=== PATIENT | male | born 1960 | race Caucasian/White ===

== ENCOUNTER 2018-08-01 18:27 | Inpatient (IN) ==
[2018-08-01 22:44] LABS: ABG Base Excess -3 mEq/L (-2 to 3); ABG HCO3 22 mEq/L (21-27); ABG Oxygen Saturation 98 % (95-98); ABG PCO2 38 mmHg (35-45); ABG PH 7.38 pH Units (7.32-7.45); ABG PO2 103 mmHg (85-104); ABG TCO2 23 mEq/L (20-26); Blood Gas PEEP 8 cm H2O
--- NOTE | 2018-08-01 22:47 | Internal Med History&Physical ---
<Maryana Wharton M - Last Filed: 08/02/18 02:25> Date of Encounter: 08/02/18 Time of Encounter: 22:47 Internal Medicine - H&P: HPI History of present illness: Mr. Arora is a 57 year old male with history of CAD status post CABG 3, COPD, hypertension, diabetes who presented to [facility] emergency department from home due to increased shortness of breath. The patient states this morning he had gradual onset of worsening of shortness of breath, worsened by activity. He does note slight increase in his peripheral edema and has not taken his Lasix for the last 3 days. He has baseline orthopnea which has not significantly worsened recently. He admits chronic cough with production of green sputum but states this has not changed recently. He admits to chronic chest pain which he describes as "like a toothache" which is daily but has not changed recently in character or severity. No known sick contacts. He states he has not been hospitalized recently or used any antibiotics. The patient states yesterday he was feeling his normal self. He denies any fever, chills, nausea, vomiting, abdominal pain, difficulty urinating, back pain or visual changes. Patient is a daily smoker. In the emergency room at [facility] the patient received 1 DuoNeb treatment, 125 mg IV methylprednisolone, Levaquin,1L fluid bolus, and aspirin 324 and was found to have left acidosis of 4.6, leukocytosis of 19.3, polycythemia with hemoglobin of 17.8. Chest x-ray shows cardiomegaly but no evidence of focal consolidation. Initial ABG shows pH is 7.21 with PCO2 of 53, PaO2 of 120. Initial troponin negativex1. Blood cultures drawn at that point Past Med Surg Social Fam HX - Past Medical History Medical history: cardiomyopathy, CHF, coronary artery disease, diabetes, hypertension Psychiatric history: anxiety, depression - Past Surgical History Surgical History: cholecystectomy, coronary bypass (CABG), pacemaker/AICD - Social History Smoking Status: Current every day smoker Packs per day: 2 Smokeless Tobacco Status: No Alcohol use: none Drug use: none Internal Medicine - H&P: Meds Metformin HCl [Metformin HCl ER] 500 mg PO BID 02/12/17 [History] Aspirin 06/09/17 [History] Lisinopril 1 mg PO DAILY 06/09/17 [History] Naproxen [Naprosyn] 500 mg PO BID #14 tablet 06/09/17 [Rx] Pradaxa 1 cap PO BID 06/09/17 [History] Ranexa 1 mg PO BID 06/09/17 [History] Albuterol Sulfate [Albuterol Inhaler] 2 puff IH Q4HR 08/01/18 [History] Albuterol Sulfate [Proair Hfa] 08/01/18 [History] Alogliptin Benzoate [Alogliptin] 25 mg PO DAILY 08/01/18 [History] Atorvastatin [Lipitor] 40 mg PO HS 08/01/18 [History] Canagliflozin [Invokana] 100 mg PO DAILY 08/01/18 [History] Carvedilol [Coreg] 12.5 mg PO BID 08/01/18 [History] Clopidogrel [Plavix] 75 mg PO DAILY 08/01/18 [History] Exenatide Microspheres [Bydureon Pen] 2 mg SQ TH 08/01/18 [History] Glimepiride [Amaryl] 2 mg PO BID 08/01/18 [History] Isosorbide MONOnitrate [Isosorbide Mononitrate ER] 30 mg PO DAILY 08/01/18 [History] Tiotropium [place] [Spiriva Respimat] 2.5 mcg IH DAILY 08/01/18 [History] Allergy/AdvReac Type Severity Reaction Status Date / Time codeine Allergy Severe Hives Verified 07/07/18 05:03 [From Tylenol-Codeine #3] All Systems PM: A 10-system review of systems was performed and is negative for pertinent findings except as documented above in the HPI. - Constitutional Constitutional: no chills, no falls - EENT Eyes: no change in vision - Cardiovascular Cardiovascular ROS IM: dyspnea, dyspnea on exertion, edema, no chest pain, no diaphoresis - Respiratory Respiratory: cough, dyspnea, no wheezing, no pain on inspiration, no change in phlegm color - Gastrointestinal Gastrointestinal: no abdominal pain, no diarrhea - Genitourinary Genitourinary ROS male: no difficulty urinating - Musculoskeletal Musculoskeletal ROS IM: no back pain - Integumentary Integumentary IM: no rash - Neurological Neurological ROS: no numbness, no tingling - Constitutional Vitals: Temp Pulse Resp BP Pulse Ox 98.5 F 88 25 135/88 100 08/01/18 21:15 08/01/18 21:15 08/01/18 21:15 08/01/18 21:15 08/01/18 21:15 General appearance: Present: A&O X 3, pleasant, no acute distress (No acute respiratory distress, on BiPAP) Exam: General: Conversant and not conversationally dyspneic on BiPAP. No apparent distress. Follow commands. Appears stated age. Neck: No JVD. Trachea midline. Neck supple. Eyes: PERRL. No scleral icterus. HENT: Normocephalic and atraumatic. Moist mucus membranes. Cardiovascular: Regular rate and rhythm, paced on the monitor. Normal S1 and S2. No murmurs appreciated. Normal capillary refill. Extremities well perfused with 2+ distal pulses bilaterally. No edema in bilateral lower extremities. Pulmonary: Decreased breath sounds in bilateral bases with slight improvement in aeration and upper lung [place]. No wheezing, rales or rhonchi. Not in respiratory distress, on BiPAP. Speaks in full sentences. Abdomen: Soft, nondistended, and tontender. No bruits or masses. No guarding. Neuro: Alert and oriented x3. No slurred speech. No focal deficits noted. Skin: No rashes noted on visualized skin. Musculoskeletal: No bony abnormalities visualized. Moves all extremities. Psych: Normal mood. Pleasant. Makes appropriate eye contact. - Head Head exam: Present: atraumatic, normocephalic Internal Med - H&P Results - ABG Interpretation Interpretation: ABG interpreted by me ABG results: 08/01/18 22:39 ABG pH 7.38 D ABG pCO2 38 ABG pO2 103 ABG HCO3 22 ABG Total CO2 23 ABG O2 Saturation 98 ABG Base Excess -3 L - Assessment and Plan (1) COPD with exacerbation Current Visit: Yes Status: Acute Assessment and plan: * Likely source of the patient's symptoms given gradual onset, significant improvement with BiPAP and DuoNeb's * Repeat ABG upon arrival shows significant improvement and hypercapnia and normalization of his pH * We will give the patient 3 DuoNeb treatments with scheduled albuterol every 4 hours * Patient currently on BiPAP but will attempt to wean the patient down to nasal cannula as tolerated * 125 mg IV methylprednisolone given in the emergency department at [facility] * Will continue levaquin for COPD exacerbation with coverage for community acquired pneumonia given he did meet SIRS criteria upon arrival to [facility] * Blood cultures pending from [facility] (2) Acute respiratory failure Current Visit: Yes Status: Acute Assessment and plan: * Patient does not use baseline oxygen at home * Initially hypoxic on oxygen mask and transitioned to BiPAP Qualifiers: Respiratory failure complication: hypoxia and hypercapnia Qualified Code(s): J96.01 - Acute respiratory failure with hypoxia; J96.02 - Acute respiratory failure with hypercapnia (3) Elevated troponin Current Visit: Yes Status: Acute Assessment and plan: * Initial troponin at [facility] negative x1, repeat upon arrival here shows elevation to 0.29 * EKG shows paced rhythm but negative for ischemic changes using scarbossa criteria * Given significant cardiac history will trend troponins, obtain echo in the morning and consult cardiology * Placed on heparin drip, will continue home brilinta and plavix in the meantime with recommendations from cardiology appreciated (4) Lactic acidosis Current Visit: Yes Status: Resolved Assessment and plan: * Initial lactate 4.9, repeat 1.4 * Patient has had significant improvement in his acidosis as seen on ABG (5) Hx of CABG Current Visit: Yes Status: Acute Assessment and plan: * At this point no complaints of chest pain above baseline * Patient does not appear to be clinically fluid overloaded * Will obtain echocardiogram in the morning to evaluate EF (6) Diabetes mellitus Current Visit: Yes Status: Acute Assessment and plan: * Not on home insulin * q6 accuchecks with SSI until able to come off BiPAP and eat, until then will keep NPO * HgA1c ordered, glucose on BMP 327 Qualifiers: Diabetes mellitus type: type 2 Diabetes mellitus assisted insulin use: without assisted use Diabetes mellitus complication status: without complication Qualified Code(s): E11.9 - Type 2 diabetes mellitus without complications (7) Hyperlipidemia Current Visit: Yes Status: Acute Assessment and plan: * Continue home medications Qualifiers: Hyperlipidemia type: mixed hyperlipidemia Qualified Code(s): E78.2 - Mixed hyperlipidemia (8) Hypertension Current Visit: Yes Status: Acute Assessment and plan: * Continue home medications Qualifiers: Hypertension type: essential hypertension Qualified Code(s): I10 - Essential (primary) hypertension (9) DVT prophylaxis Current Visit: Yes Status: Acute Assessment and plan: * On heparin drip for NSTEMI - Time Spent With Patient Total time spent is greater than 50% in coordination of care (as documented) at patient's floor/unit and/or counseling patient: <Thomas Zeng - Last Filed: 08/02/18 20:22> Date of Encounter: 08/01/18 Internal Medicine - H&P: HPI History of present illness: Mr. Arora is a 57 year old male All Systems PM: A 10-system review of systems was performed and is negative for pertinent fin dings except as documented above in the HPI. - Constitutional Vitals: Temp Pulse Resp BP Pulse Ox 97.7 F 73 19 120/70 92 08/02/18 19:40 08/02/18 19:40 08/02/18 19:40 08/02/18 19:40 08/02/18 19:40 Internal Med - H&P Results - Labs CBC & Chem 7: 08/02/18 01:10 08/02/18 01:10 Labs: Short CBC 08/02/18 Range/Units 01:10 WBC 11.6 H (4.3-11.1) K/mcL Hgb 16.1 D (12.9-16.9) g/dL Hct 47.7 (37.5-50.1) % Plt Count 239 (140-400) K/mcL Neutrophils # 10.5 H (1.6-8.9) K/mcL BMP 08/02/18 01:10 Sodium 136 Potassium 4.3 Chloride 104 Carbon Dioxide 21 L BUN 15 Creatinine 0.92 Glucose 192 H Calcium 9.8 Cardiac Enzymes 08/01/18 08/02/18 Range/Units 23:14 10:50 Troponin I 0.29 H* 0.25 H* (< 0.04) ng/mL Urine 08/02/18 Range/Units 00:51 Urine Color Yellow (Yellow) Urine Clarity Clear (Clear) Urine pH 5.5 (5.0-8.0) pH Units Ur Specific [place] > 1.030 H (1.010-1.025) Urine Protein Trace (Neg-Trace) mg/dL Urine Glucose (UA) >=1000 H (Normal) mg/dL - ABG Interpretation ABG results: 08/01/18 22:39 ABG pH 7.38 D ABG pCO2 38 ABG pO2 103 ABG HCO3 22 ABG Total CO2 23 ABG O2 Saturation 98 ABG Base Excess -3 L - Impressions ITS Impressions Echocardiogram 08/02/18 23:36 Impressions: Technically sub-optimal due to poor echocardiographic windows. Despite the use of contrast enhancement, not all LV segments were well visualized. Grossly, LVEF appears severely reduced. Severely dilated left ventricle. Atypical septal motion consistent with post-operative status. Right ventricle was not well visiualized. Mild left ventricular diastolic dysfunction. No significant valvular dysfunction. Unable to estimate RVSP due to lack of TR jet. Findings: Study Quality * Technically sub-optimal due to poor echocardiographic windows. ECG Findings * Sinus rhythm with BBB. Left Ventricle * Despite the use of contrast enhancement, not all LV segments were well visualized. Grossly, LVEF appears severely reduced. * Severely dilated left ventricle. * Atypical septal motion consistent with post-operative status. * Mild left ventricular diastolic dysfunction. Right Ventricle * Right ventricle was not well visiualized. Left Atrium * Mildly dilated left atrium. Right Atrium * Mildly dilated right atrium. Aortic Valve * Aortic valve not well visualized. * No aortic regurgitation. * No aortic stenosis. Mitral Valve * Normal mitral valve structure and function. * No mitral regurgitation. * No mitral stenosis. Tricuspid Valve * Normal tricuspid valve structure and function. * No tricuspid regurgitation. * Unable to estimate RVSP due to lack of TR jet. Pulmonic Valve * Pulmonic valve is not well visualized. Aorta * Normally sized aortic root. Pericardium * The pericardium appears normal. IVC * The IVC is not well evaluated. Pulmonary Artery * Pulmonary artery not well visualized. - Time Spent With Patient Total time spent is greater than 50% in coordination of care (as documented) at patient's floor/unit and/or counseling patient: - Attending Attestation I saw and evaluated the patient. I reviewed the residents note, performed my own physical examination and agree with findings and plan as documented in the residents note. Patient seen and examined on the morning of 08/02/18. Patient had an elevation of his troponin, started heparin. Presented with acute hypoxic respiratory failure and possible pneumonia. Will continue antibiotics. Patient declines nicotine patch. Discussed patient's family history of medical problems, states that he thinks his mother had heart problems and cancer, but he left home at a young age so he did not know many details apart from that.
[2018-08-01] MEDS ORDERED: Naloxone 0.4 MG/ML INJ IVP PRN (22:49)
[2018-08-01] MEDS ORDERED: Ondansetron ODT 4 MG TAB.RAPDIS SL PRN (22:49)
[2018-08-01] MEDS ORDERED: Ipratropium/Albuterol Neb 3 ML IH ONE (23:01)
[2018-08-02] MEDS ORDERED: *HR* Heparin 5,000 UNIT/ML VIAL IVP PRN ×2 (00:29)
[2018-08-02] MEDS ORDERED: *HR* Heparin 5,000 UNIT/ML VIAL IVP ONE (00:29)
[2018-08-02] MEDS ORDERED: *HR* Dextrose 50 % in Water (Syg) 50 ML SYRINGE IVP PRN (00:39)
[2018-08-02] MEDS ORDERED: D5% in Water 1,000 ML IVC PRN (00:39)
[2018-08-02] MEDS ORDERED: Dextrose Gel 15 GM/37.5 ML TUBE PO PRN ×2 (00:39)
[2018-08-02 01:13] LABS: Bilirubin,Urine Negative (Negative); Blood,Urine Negative (Negative); Clarity,Urine Clear (Clear); Color,Urine Yellow (Yellow); Glucose,Urine (UA) >=1000 mg/dL (Normal); Ketones,Urine Negative (Negative); Leukocyte Esterase,Urine Negative (Negative); Nitrite,Urine Negative (Negative); PH,Urine 5.5 pH Units (5.0-8.0); Protein,Urine Trace mg/dL (Neg-Trace); Specific Gravity,Urine > 1.030 (1.010-1.025); Urobilinogen,Urine Normal (Normal)
[2018-08-02] MEDS: Heparin 25,000 UNIT/250 ML D5W 25,000 UNIT/250 ML IV.SOLN IVC SCH ×2 (01:49→21:53)
[2018-08-02 02:42] LABS: Basophils % 0.2 %; Hematocrit 47.7 % (37.5-50.1); Hemoglobin 16.1 g/dL (12.9-16.9); Immature Granulocytes % 0.4 % (0-4); Lymphocytes # 0.9 K/mcL (0.6-4.6); Lymphocytes % 7.8 %; Mean Corpuscular HGB Conc 33.8 g/dL (31.6-35.5); Mean Platelet Volume 10.8 fL (9.4-12.4); Monocytes # 0.1 K/mcL (0.0-1.3); Monocytes % 0.9 %; Neutrophils # 10.5 K/mcL (1.6-8.9); Platelet Count 239 K/mcL (140-400); Red Blood Count 5.36 M/mcL (4.19-5.50); Red Cell Distribution Width 14.1 % (11.5-14.5); Segmented Neutrophils % 90.7 %
[2018-08-02 02:49] LABS: Prothrombin Time 11.8 Seconds (9.4-12.1)
[2018-08-02 02:59] LABS: BUN/Creatinine Ratio 16 (6-26); Blood Urea Nitrogen 15 mg/dL (6-20); Calcium 9.8 mg/dL (8.6-10.3); Carbon Dioxide 21 mEq/L (23-29); Chloride 104 mEq/L (98-107); Glucose 192 mg/dL (70-105); Osmolality,Calculated 288 (280-300); Phosphorous 2.2 mg/dL (2.7-4.5); Potassium 4.3 mEq/L (3.5-5.1); Sodium 136 mEq/L (136-145); eGFR For Non-African Americans > 60 (> 60)
[2018-08-02] MEDS: Trolamine Salicylate/Aloe Vera 35.4 GM TUBE TP PRN ×2 (03:04→09:50)
[2018-08-02] MEDS: Levalbuterol Neb 1.25 MG/3 ML IH SCH ×6 (04:35→23:32)
[2018-08-02] MEDS: Insulin LISPRO 300 UNITS/3 ML VIAL SQ SCH ×3 (05:49→18:20)
[2018-08-02 06:42] LABS: Estimated Average Glucose 143 mg/dl; Hemoglobin A1C 6.6 %
[2018-08-02] MEDS ORDERED: *HR* Dabigatran 150 MG CAPSULE PO SCH (09:00)
[2018-08-02] MEDS: Levofloxacin 750 MG/150 ML 750 MG/150 ML BAG IVPB SCH (09:50)
[2018-08-02] MEDS: Ranolazine 500 MG TAB.ER.12H PO SCH ×2 (09:50→21:52)
[2018-08-02] MEDS: Isosorbide MONOnitrate (24 HR) 30 MG TAB.ER.24H PO SCH (09:50)
--- NOTE | 2018-08-02 10:05 | Cardiology Consult Note ---
Addendum entered and electronically signed by Alejandro Murphy MD 08/02/18 19:23: I examined this patient and my medical decision-making was reviewed with the ABAP DEVELOPER. I agree with the documented findings, disposition and treatment plan as described except to the extent set forth below. A/P: COPD exacerbation Elevated troponin Ischemic cardiomyopathy CAD PAF TTE pending, likely troponin from demand ischemia / COPD exacerbation. No urgent indication for invasive evaluation - [facility] at this time Thank you for the consult, Alejandro Murphy MD [facility] Original Note: Date of Encounter: 08/02/18 Time of Encounter: 08:45 Assessment and Plan (1) Elevated troponin Current Visit: Yes Status: Acute Per cardiology: -Troponins negative, 0.29 in the setting of COPD exacerbation, lactic acidosis, leukocytosis. -Denies chest pain. -ECG with paced rhythm. -On plavix, statin, BB, heparin drip, imdur, ranexa. Not on asa due to need for anticoagulation for PAF. -TTE pending. -Previous TTE 09/2017 poor quality study with moderate-severely reduced LVEF. 2014 LVEF 20%. -Continue to trend troponins. Continue heparin drip. -Agree with TTE. -Suspect demand ischemia. Further recs pending TTE and troponin trend. (2) Ischemic cardiomyopathy Current Visit: Yes Status: Acute Per cardiology: -Known ICM, last TTE as above. -On BB, lisinopril. 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 -Euvolemic on exam. -Repeat TTE pending. -Continue current medical management. (3) CAD (coronary artery disease) Current Visit: Yes Status: Chronic Per cardiology: -Known CAD s/p PCI and CABG. -Denies chest pain. -on plavix, statin, BB. Not on asa due to need for pradaxa with PAF. -Continue current medical therapy. Qualifiers: Coronary Disease-Associated Artery/Lesion type: [place] artery [place] vs. transplanted heart: [place] heart Associated angina: without angina Qualified Code(s): I25.10 - Atherosclerotic heart disease of [place] coronary artery without angina pectoris (4) PAF (paroxysmal atrial fibrillation) Current Visit: Yes Status: Chronic Per cardiology: -Known PAF. -ON BB, HR controlled. -ON pradaxa for anticoagulation. -Continue current medical therapy. Discussion w patient/family: The assessment and plan as outlined above was discussed with the patient who expressed understanding and agreement. All questions were answered. Thank you for involving us in the care of your patient. Please call with any questions. Discussed and reviewed with . History of Present Illness Consult date: 08/02/18 Requesting physician: Maryana Wharton Consult reason: elevated troponin Chief complaint: shortness of breath History of present illness: Mr. 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 Patient also reports productive cough with green sputum. Patient denies chest pain. Denies increased faigue. Reports shortness of breath is improved since admission. Past Med Surg Social Fam HX - Past Medical History Attestation: Yes The following information was validated with the patient. Source: patient, old records reviewed Medical history: atrial fibrillation, cardiomyopathy, CHF, coronary artery disease, diabetes, hyperlipidemia, hypertension, myocardial infarction Psychiatric history: anxiety, depression - Past Surgical History Surgical History: cholecystectomy, coronary bypass (CABG), pacemaker/AICD - Social History Smoking Status: Current every day smoker Packs per day: 2 Smokeless Tobacco Status: No Alcohol use: none Drug use: none Medications and Allergies Metformin HCl [Metformin HCl ER] 500 mg PO BID 02/12/17 [History] Aspirin 06/09/17 [History] Lisinopril 1 mg PO DAILY 06/09/17 [History] Naproxen [Naprosyn] 500 mg PO BID #14 tablet 06/09/17 [Rx] Pradaxa 1 cap PO BID 06/09/17 [History] Ranexa 1 mg PO BID 06/09/17 [History] Albuterol Sulfate [Albuterol Inhaler] 2 puff IH Q4HR 08/01/18 [History] Albuterol Sulfate [Proair Hfa] 08/01/18 [History] Alogliptin Benzoate [Alogliptin] 25 mg PO DAILY 08/01/18 [History] Atorvastatin [Lipitor] 40 mg PO HS 08/01/18 [History] Canagliflozin [Invokana] 100 mg PO DAILY 08/01/18 [History] Carvedilol [Coreg] 12.5 mg PO BID 08/01/18 [History] Clopidogrel [Plavix] 75 mg PO DAILY 08/01/18 [History] Exenatide Microspheres [Bydureon Pen] 2 mg SQ TH 08/01/18 [History] Glimepiride [Amaryl] 2 mg PO BID 08/01/18 [History] Isosorbide MONOnitrate [Isosorbide Mononitrate ER] 30 mg PO DAILY 08/01/18 [History] Tiotropium [place] [Spiriva Respimat] 2.5 mcg IH DAILY 08/01/18 [History] Allergy/AdvReac Type Severity Reaction Status Date / Time codeine Allergy Severe Hives Verified 07/07/18 05:03 [From Tylenol-Codeine #3] All Systems Review: The remainder of the systems were reviewed and are negative - Cardiovascular Cardiovascular: as per HPI, dyspnea at rest, dyspnea on exertion - Respiratory Respiratory: cough Physical Examination Vital Signs, Last 4 Hours Temp Pulse Resp BP Pulse Ox 08/02/18 07:36 98.2 F 77 17 121/76 95 General: Conversant, No Apparent Distress HEENT: Atraumatic, Normocephaly, Mucus Membranes Moist Neck: No JVD, Normal carotid pulses Cardiac: Reg Rate and Rhythm, Normal S1 and S2, No Murmur Lungs: Normal Breath Sounds, No Wheeze, Rales, Rhonchi Neuro: Alert and responsive, No focal deficits noted Abdomen: Soft, Non-Tender Skin: No rashes noted on visualized skin Musculoskeletal: No Chest Wall Tenderness Extremities: No Clubbing, No Cyanosis, No Edema, Normal Pulses Results 08/02/18 01:10 08/02/18 01:10 Lab Results Active Medications Atorvastatin Calcium (Lipitor) 40 mg PO HS BOLA Stop: 02/01/19 21:01 Carvedilol (Coreg) 12.5 mg PO BID BOLA; Protocol Stop: 02/01/19 09:01 Last Admin: 08/02/18 09:50 Dose: 12.5 mg Clopidogrel Bisulfate (Plavix) 75 mg PO DAILY BOLA Stop: 02/01/19 09:01 Last Admin: 08/02/18 09:50 Dose: 75 mg Dextrose/Water (Dextrose 50% (Syg)) 25 ml IVP AD PRN PRN Reason: Hypoglycemia Stop: 02/01/19 00:40 Glucagon (Glucagen) 1 mg IM ONCE PRN PRN Reason: Hypoglycemia Stop: 02/01/19 00:40 Glucose (Gluctose) 15 gm PO ONCE PRN PRN Reason: Hypoglycemia Stop: 02/01/19 00:40 Glucose (Gluctose) 30 gm PO ONCE PRN PRN Reason: Hypoglycemia Stop: 02/01/19 00:40 Heparin Sodium (Porcine) (Heparin) 4,000 unit IVP Q6HR PRN PRN Reason: SEE COMMENTS Stop: 02/01/19 00:30 Heparin Sodium (Porcine) (Heparin) 2,000 unit IVP Q6H PRN PRN Reason: SEE COMMENTS Stop: 02/01/19 00:30 Heparin Sodium/Dextrose (Heparin 25,000 Unit/250 Ml D5w) 25,000 unit in 250 mls @ 9.927 mls/hr IVC .Q24H BOLA; Protocol Stop: 02/01/19 00:31 Last Admin: 08/02/18 01:49 Dose: 9.2 unit/kg/hr, 9.9 mls/hr Levofloxacin/Dextrose (Levaquin Premix 750mg/150 Ml) 750 mg in 150 mls @ 100 mls/hr IVPB DAILY BOLA; Protocol Stop: 02/01/19 09:01 Last Admin: 08/02/18 09:50 Dose: 100 mls/hr Dextrose (Dextrose 5%) 1,000 mls @ 100 mls/hr IVC .Q10H PRN PRN Reason: HYPOGLYCEMIA Stop: 02/01/19 00:40 Insulin Human Lispro (Humalog) 0 units SQ Q6HR BOLA; Protocol Stop: 02/01/19 06:01 Last Admin: 08/02/18 05:49 Dose: 6 units Isosorbide Mononitrate (Imdur) 30 mg PO DAILY BOLA Stop: 02/01/19 09:01 Last Admin: 08/02/18 09:50 Dose: 30 mg Levalbuterol HCl (Xopenex) 1.25 mg IH [id number] [facility] Stop: 02/01/19 04:01 Last Admin: 08/02/18 08:19 Dose: 1.25 mg Lisinopril (Zestril) 10 mg PO DAILY BOLA Stop: 02/01/19 09:01 Last Admin: 08/02/18 09:50 Dose: 10 mg Naloxone HCl (Narcan) 0.4 mg IVP Q2M PRN PRN Reason: Opioid Reversal Stop: 01/31/19 22:50 Ondansetron HCl (Zofran Odt) 8 mg SL Q8HR PRN PRN Reason: Nausea And Vomiting Stop: 01/31/19 22:50 Ranolazine (Ranexa) 500 mg PO BID BOLA Stop: 02/01/19 09:01 Last Admin: 08/02/18 09:50 Dose: 500 mg Trolamine Salicylate (Aspercreme 10%) 1 appl TP TID PRN PRN Reason: SEE COMMENTS Stop: 02/01/19 02:31 Last Admin: 08/02/18 09:50 Dose: 1 appl Laboratory Tests 08/01/18 08/01/18 08/01/18 17:14 17:14 23:14 WBC 19.3 H Hgb Creatinine Troponin I < 0.03 0.29 H* 08/02/18 08/02/18 01:10 01:10 WBC 11.6 H Hgb 16.1 D Creatinine 0.92 Troponin I - Imaging and Cardiology Chest Xray: report reviewed Echo: pending, report reviewed - EKG Interpretation EKG results cardiology: personally reviewed (ECG with paced rhythm, HR 112.), other (Telemetry reviewed with average HR previous 12 hours noted to be 81, paced rhythm.) Consult Discharge Plan - Plan Referrals: Lizzie Irby MD [Primary Care Provider] - 08/09/18 11:00 am
[2018-08-02] MEDS ORDERED: Capsaicin 0.025% 60 GM TUBE TP PRN (11:22)
[2018-08-02] MEDS ORDERED: Perflutren Lipid Microsphere 1.3 ML in 0.9 % Sodium Chloride 8.7 ML IVP ONE (13:14)
--- NOTE | 2018-08-02 16:30 | Event Note ---
Date of Encounter: 08/02/18 Time of Encounter: 09:25 patient seen and examined this morning. no acute overnight events. Complaint in bilateral lower extremity. denies any chest pain. breathing improved. Exam General: In no acute distress. Respiratory exam: CTAB. no accessory muscle use, rales, rhonchi, wheezes Cardiovascular exam: RRR, +S1, +S2. no murmur, gallop, rubs. GI/Abdominal exam: Non-tender, Non-distended, normal bowel sounds, soft, no peritoneal signs. Extremities exam: trace pedal edema, pulses palpable in b/l lower extremities. no calf tenderness Neurological exam: CN II-XII intact, AO X3, no focal deficits. Skin exam: No skin rash Assessment COPD exacerbation Acute hypoxic respiratory failure Elevated troponin ischemic cardiomyopathy paroxysmal atrial fibrillation Lactic acidosis Hypertension Diabetes type 2 Hyperlipidemia Plan - patient started on heparin drip. continue for now and hold pradaxa. Last ECHO with poor EF. f/u ECHO. Cardiology recommendation appreciated. - Continue Plavix statin and Coreg. - continue lisinopril and imdur. - consult on smoking cessation. Patient determined to quit smoking. - continue Levaquin, prednisone and xopenex. start home inhalers. f/u Blood cultures from [place] - hold home oral hypoglycemics. Keep on SSI and accuchecks - Lactic acidosis likely related to metformin vs COPD exacerbation and improved quickly with COPD treatment. Does not appear to have sepsis
[2018-08-02] MEDS: TIOTROPIUM BROMIDE 2.5 MCG IH SCH (17:55)
[2018-08-02] MEDS: predniSONE 20 MG TABLET PO SCH (18:20)
[2018-08-02] MEDS ORDERED: Insulin LISPRO 300 UNITS/3 ML VIAL SQ SCH (22:00)
[2018-08-03 01:27] LABS: Basophils % 0.3 %; Hematocrit 43.1 % (37.5-50.1); Hemoglobin 14.8 g/dL (12.9-16.9); Immature Granulocytes % 0.6 % (0-4); Lymphocytes # 1.6 K/mcL (0.6-4.6); Lymphocytes % 10.5 %; Mean Corpuscular HGB Conc 34.3 g/dL (31.6-35.5); Mean Corpuscular Hemoglobin 29.8 pg (28.0-33.3); Mean Corpuscular Volume 86.9 fL (83.0-100.0); Mean Platelet Volume 10.5 fL (9.4-12.4); Monocytes # 0.8 K/mcL (0.0-1.3); Monocytes % 5.2 %; Neutrophils # 12.7 K/mcL (1.6-8.9); Platelet Count 218 K/mcL (140-400); Red Blood Count 4.96 M/mcL (4.19-5.50); Red Cell Distribution Width 13.9 % (11.5-14.5); Segmented Neutrophils % 83.4 %
[2018-08-03 01:44] LABS: BUN/Creatinine Ratio 22 (6-26); Blood Urea Nitrogen 18 mg/dL (6-20); Calcium 9.7 mg/dL (8.6-10.3); Carbon Dioxide 23 mEq/L (23-29); Chloride 103 mEq/L (98-107); Glucose 226 mg/dL (70-105); Osmolality,Calculated 285 (280-300); Potassium 4.8 mEq/L (3.5-5.1); Sodium 133 mEq/L (136-145); eGFR For Non-African Americans > 60 (> 60)
[2018-08-03] MEDS: Levalbuterol Neb 1.25 MG/3 ML IH SCH ×3 (03:34→11:14)
[2018-08-03] MEDS ORDERED: *HR* Dabigatran 150 MG CAPSULE PO SCH (09:00)
[2018-08-03] MEDS: Isosorbide MONOnitrate (24 HR) 30 MG TAB.ER.24H PO SCH (09:07)
[2018-08-03] MEDS: predniSONE 20 MG TABLET PO SCH (09:07)
[2018-08-03] MEDS: Ranolazine 500 MG TAB.ER.12H PO SCH (09:07)
[2018-08-03] MEDS: Levofloxacin 750 MG/150 ML 750 MG/150 ML BAG IVPB SCH (09:08)
[2018-08-03] MEDS: TIOTROPIUM BROMIDE 2.5 MCG IH SCH (09:09)
--- NOTE | 2018-08-03 09:48 | Cardiology Progress Note ---
Date of Encounter: 08/03/18 Time of Encounter: 09:00 Assessment and Plan (1) Elevated troponin Current Visit: Yes Status: Acute Per cardiology: -Troponins negative, 0.29, 0.25 in the setting of COPD exacerbation, lactic acidosis, leukocytosis. -Denies chest pain. -ECG with paced rhythm. -On plavix, statin, BB, heparin drip, imdur, ranexa. Not on asa due to need for anticoagulation for PAF. -TTE with poor quality study due to poor windows, LVEF appeats severely reduced. -Previous TTE 09/2017 poor quality study with moderate-severely reduced LVEF. 2014 LVEF 20%. -Demand ischemia, no cardiac rehab consult warranted. -Will stop heparin drip and resume home anticoagulation. -Cardiology will sign off, will arrange outpatient follow up. (2) Ischemic cardiomyopathy Current Visit: Yes Status: Acute Per cardiology: -Known ICM, last TTE as above. -On BB, lisinopril. 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 -Euvolemic on exam. -Repeat TTE pending. -Continue current medical management. (3) CAD (coronary artery disease) Current Visit: Yes Status: Chronic Per cardiology: -Known CAD s/p PCI and CABG. -Denies chest pain. -on plavix, statin, BB. Not on asa due to need for pradaxa with PAF. -Continue current medical therapy. Qualifiers: Coronary Disease-Associated Artery/Lesion type: [place] artery [place] vs. transplanted heart: [place] heart Associated angina: without angina Qualified Code(s): I25.10 - Atherosclerotic heart disease of [place] coronary artery without angina pectoris (4) PAF (paroxysmal atrial fibrillation) Current Visit: Yes Status: Chronic Per cardiology: -Known PAF. -ON BB, HR controlled. -ON pradaxa for anticoagulation. -Continue current medical therapy. Discussion w patient/family: The assessment and plan as outlined above was discussed with the patient who expressed understanding and agreement. All questions were answered. Thank you for involving us in the care of your patient. Please call with any questions. Discussed and reviewed with . Subjective Principal diagnosis: COPD exacerbation Interval history: Denies chest pain. Reports shortness of breath improved. Objective Vital Signs, Last 4 Hours Temp Pulse Resp BP Pulse Ox 08/03/18 07:40 15 96 08/03/18 07:25 97.9 F 74 18 125/76 94 General: Conversant, No Apparent Distress HEENT: Atraumatic, Normocephaly, Mucus Membranes Moist Neck: No JVD, Normal carotid pulses Cardiac: Reg Rate and Rhythm, Normal S1 and S2, No Murmur Lungs: Normal Breath Sounds, No Wheeze, Rales, Rhonchi Neuro: Alert and responsive, No focal deficits noted Abdomen: Soft, Non-Tender Skin: No rashes noted on visualized skin Musculoskeletal: No Chest Wall Tenderness Extremities: No Clubbing, No Cyanosis, No Edema, Normal Pulses Results 08/03/18 00:52 08/03/18 00:52 Lab Results Impressions Echocardiogram 08/02/18 23:36 Impressions: Technically sub-optimal due to poor echocardiographic windows. Despite the use of contrast enhancement, not all LV segments were well visualized. Grossly, LVEF appears severely reduced. Severely dilated left ventricle. Atypical septal motion consistent with post-operative status. Right ventricle was not well visiualized. Mild left ventricular diastolic dysfunction. No significant valvular dysfunction. Unable to estimate RVSP due to lack of TR jet. Findings: Study Quality * Technically sub-optimal due to poor echocardiographic windows. ECG Findings * Sinus rhythm with BBB. Left Ventricle * Despite the use of contrast enhancement, not all LV segments were well visualized. Grossly, LVEF appears severely reduced. * Severely dilated left ventricle. * Atypical septal motion consistent with post-operative status. * Mild left ventricular diastolic dysfunction. Right Ventricle * Right ventricle was not well visiualized. Left Atrium * Mildly dilated left atrium. Right Atrium * Mildly dilated right atrium. Aortic Valve * Aortic valve not well visualized. * No aortic regurgitation. * No aortic stenosis. Mitral Valve * Normal mitral valve structure and function. * No mitral regurgitation. * No mitral stenosis. Tricuspid Valve * Normal tricuspid valve structure and function. * No tricuspid regurgitation. * Unable to estimate RVSP due to lack of TR jet. Pulmonic Valve * Pulmonic valve is not well visualized. Aorta * Normally sized aortic root. Pericardium * The pericardium appears normal. IVC * The IVC is not well evaluated. Pulmonary Artery * Pulmonary artery not well visualized. Active Medications Atorvastatin Calcium (Lipitor) 40 mg PO HS BOLA Stop: 02/01/19 21:01 Last Admin: 08/02/18 21:52 Dose: 40 mg Capsaicin (Trixaicin) 1 appl TP TID PRN PRN Reason: NEUROPATHIC PAIN IN EXTREMITY Stop: 02/01/19 11:23 Last Admin: 08/02/18 18:21 Dose: 1 appl Carvedilol (Coreg) 12.5 mg PO BID [facility]; Protocol Stop: 02/01/19 09:01 Last Admin: 08/03/18 09:07 Dose: 12.5 mg Clopidogrel Bisulfate (Plavix) 75 mg PO DAILY [facility] Stop: 02/01/19 09:01 Last Admin: 08/03/18 09:08 Dose: 75 mg Dabigatran (Pradaxa) 150 mg PO BID [facility] Stop: 02/02/19 09:01 Dextrose/Water (Dextrose 50% (Syg)) 25 ml IVP AD PRN PRN Reason: Hypoglycemia Stop: 02/01/19 00:40 Glucagon (Glucagen) 1 mg IM ONCE PRN PRN Reason: Hypoglycemia Stop: 02/01/19 00:40 Glucose (Gluctose) 15 gm PO ONCE PRN PRN Reason: Hypoglycemia Stop: 02/01/19 00:40 Glucose (Gluctose) 30 gm PO ONCE PRN PRN Reason: Hypoglycemia Stop: 02/01/19 00:40 Levofloxacin/Dextrose (Levaquin Premix 750mg/150 Ml) 750 mg in 150 mls @ 100 mls/hr IVPB DAILY [facility]; Protocol Stop: 02/01/19 09:01 Last Admin: 08/03/18 09:08 Dose: 100 mls/hr Dextrose (Dextrose 5%) 1,000 mls @ 100 mls/hr IVC .Q10H PRN PRN Reason: HYPOGLYCEMIA Stop: 02/01/19 00:40 Insulin Human Lispro (Humalog) 0 units SQ HS [facility]; Protocol Stop: 02/01/19 22:01 Last Admin: 08/02/18 23:05 Dose: 3 unit Isosorbide Mononitrate (Imdur) 30 mg PO DAILY [facility] Stop: 02/01/19 09:01 Last Admin: 08/03/18 09:07 Dose: 30 mg Levalbuterol HCl (Xopenex) 1.25 mg IH [id number] [facility] Stop: 02/01/19 04:01 Last Admin: 08/03/18 07:40 Dose: 1.25 mg Lisinopril (Zestril) 10 mg PO DAILY [facility] Stop: 02/01/19 09:01 Last Admin: 08/03/18 09:08 Dose: 10 mg Naloxone HCl (Narcan) 0.4 mg IVP Q2M PRN PRN Reason: Opioid Reversal Stop: 01/31/19 22:50 Ondansetron HCl (Zofran Odt) 8 mg SL Q8HR PRN PRN Reason: Nausea And Vomiting Stop: 01/31/19 22:50 Pharmacy Profile Note (Patient Taking Own Medication) 0 each IH DAILY BOLA Stop: 02/01/19 16:31 Last Admin: 08/03/18 09:09 Dose: Not Given Prednisone (Prednisone) 40 mg PO DAILY [facility] Stop: 02/01/19 16:31 Last Admin: 08/03/18 09:07 Dose: 40 mg Ranolazine (Ranexa) 500 mg PO BID [facility] Stop: 02/01/19 09:01 Last Admin: 08/03/18 09:07 Dose: 500 mg Trolamine Salicylate (Aspercreme 10%) 1 appl TP TID PRN PRN Reason: SEE COMMENTS Stop: 02/01/19 02:31 Last Admin: 08/02/18 09:50 Dose: 1 appl Laboratory Tests 08/01/18 08/01/18 08/02/18 17:14 23:14 10:50 Troponin I < 0.03 0.29 H* 0.25 H* - Imaging and Cardiology Chest Xray: report reviewed Echo: report reviewed - EKG Interpretation EKG results cardiology: other (Telemetry reviewed with average HR previous 12 hours noted to be 75, paced rhythm. PVCs noted.) Consult Discharge Plan - Plan Referrals: Lizzie Irby MD [Primary Care Provider] - 08/09/18 11:00 am
[2018-08-03 11:19] VITALS: BP 127/76
--- NOTE | 2018-08-03 14:44 | Discharge Summary ---
- NOTES TO OUTPATIENT PROVIDER Notes to Outpatient Provider: Related follow-up with cardiology as outpatient. Orders not resulted at time of discharge: Pending orders 08/02/18 16:29 Culture,Sputum with Gram Stain [RM] Stat 08/04/18 01:00 Heparin anti-factor XA UFH [COAG] Timed 08/04/18 04:00 Basic Metabolic Panel AM 0400 Complete Blood Count [HEME] AM 0400 08/05/18 04:00 Basic Metabolic Panel AM 0400 Complete Blood Count [HEME] AM 0400 08/06/18 04:00 Basic Metabolic Panel AM 0400 Complete Blood Count [HEME] AM 0400 Date of Encounter: 08/03/18 Time of Encounter: 12:35 - Discharge Diagnosis (1) COPD with exacerbation Priority: Primary Status: Acute (2) DVT prophylaxis Priority: Secondary Status: Acute (3) Diabetes mellitus Priority: Secondary Status: Acute Qualifiers: Diabetes mellitus type: type 2 Diabetes mellitus longterm insulin use: without 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 Diabetes mellitus complication status: without complication Qualified Code(s): E11.9 - Type 2 diabetes mellitus without complications (4) Elevated troponin Priority: Primary Status: Acute (5) Hyperlipidemia Priority: Secondary Status: Acute Qualifiers: Hyperlipidemia type: mixed hyperlipidemia Qualified Code(s): E78.2 - Mixed hyperlipidemia (6) Hypertension Priority: Secondary Status: Acute Qualifiers: Hypertension type: essential hypertension Qualified Code(s): I10 - Essential (primary) hypertension (7) Ischemic cardiomyopathy Priority: Secondary Status: Acute (8) CAD (coronary artery disease) Priority: Secondary Status: Chronic Qualifiers: Coronary Disease-Associated Artery/Lesion type: [place] artery [place] vs. tr ansplanted heart: [place] heart Associated angina: without angina Qualified Code(s): I25.10 - Atherosclerotic heart disease of [place] coronary artery without angina pectoris (9) PAF (paroxysmal atrial fibrillation) Priority: Secondary Status: Chronic Hospital course: Mr. Arora is a 57 year old male past medical history of diabetes, CHF systolic, cardiomyopathy, hypertension hyperlipidemia came in with complaint of shortness of breath. Patient was found to have COPD exacerbation as well as elevated troponin. Patient was started on heparin drip and steroids and inhalers and antibiotics for COPD. Urine significant history of coronary artery disease cardiology was also consulted. Patient improved over the course of his hospital stay. Patient was seen by cardiology who did not recommend any acute intervention and patient was continued on medical management as he likely had a demand ischemia. Patient had a follow-up echocardiogram which was poor study still showing poor EF. Patient is on Permax for paroxysmal A. fib which he will continue on discharge as well as continue his beta michael and lisinopril. Patient already had MOTION PICTURE SET GRIP-D placed. Patient otherwise stable to be discharged home as he insisted to go home and is breathing well without significant wheezing. Patient to finish course of Levaquin and prednisone. Patient will need to follow with PCP and cardiology within 1-2 weeks. Discharge discussed with: patient, nurse - Time Spent with Patient Total time spent providing and/or coordinating discharge services: Time spent: Greater than 30 minutes (40) - Discharge Medications Prescriptions: New Levofloxacin [Levaquin] 750 mg PO DAILY 4 Days #4 tablet predniSONE [PredniSONE] 40 mg PO DAILY 4 Days #8 tablet DULoxetine [Cymbalta] 20 mg PO DAILY 30 Days #30 capsule.dr Continue Canagliflozin [Invokana] 100 mg PO DAILY Atorvastatin [Lipitor] 40 mg PO HS Alogliptin Benzoate [Alogliptin] 25 mg PO DAILY Tiotropium [place] [Spiriva Respimat] 2.5 mcg IH BID Diclofenac Sodium 1 appl TP 2-3XD PRN PRN Reason: Pain Furosemide [Lasix] 20 mg PO BID Metformin HCl 1,000 mg PO BID Nitroglycerin [Nitrostat] 0.4 mg SL Q5MIN PRN MDD [id number] CALL 911 PRN Reason: Chest Pain Lisinopril [Zestril] 10 mg PO DAILY Ranolazine [Ranexa] 500 mg PO BID Dabigatran [Pradaxa] 150 mg PO BID Aspirin [Lo-Dose Aspirin EC] 81 mg PO DAILY #0 Isosorbide MONOnitrate [Isosorbide Mononitrate ER] 30 mg PO DAILY Albuterol Sulfate [Albuterol Inhaler] 2 puff IH Q4HR Glimepiride [Amaryl] 2 mg PO BID Carvedilol [Coreg] 12.5 mg PO BID Exenatide Microspheres [Bydureon Pen] 2 mg SQ TH Home Medications: Aspirin [Lo-Dose Aspirin EC] 81 mg PO DAILY #0 06/09/17 [History] Dabigatran [Pradaxa] 150 mg PO BID 06/09/17 [History] Lisinopril [Zestril] 10 mg PO DAILY 06/09/17 [History] Ranolazine [Ranexa] 500 mg PO BID 06/09/17 [History] Albuterol Sulfate [Albuterol Inhaler] 2 puff IH Q4HR 08/01/18 [History] Alogliptin Benzoate [Alogliptin] 25 mg PO DAILY 08/01/18 [History] Atorvastatin [Lipitor] 40 mg PO HS 08/01/18 [History] Canagliflozin [Invokana] 100 mg PO DAILY 08/01/18 [History] Carvedilol [Coreg] 12.5 mg PO BID 08/01/18 [History] Exenatide Microspheres [Bydureon Pen] 2 mg SQ TH 08/01/18 [History] Glimepiride [Amaryl] 2 mg PO BID 08/01/18 [History] Isosorbide MONOnitrate [Isosorbide Mononitrate ER] 30 mg PO DAILY 08/01/18 [History] Tiotropium [place] [Spiriva Respimat] 2.5 mcg IH BID 08/01/18 [History] Diclofenac Sodium 1 appl TP 2-3XD PRN 08/03/18 [History] Furosemide [Lasix] 20 mg PO BID 08/03/18 [History] Levofloxacin [Levaquin] 750 mg PO DAILY 4 Days #4 tablet 08/03/18 [Rx] Metformin HCl 1,000 mg PO BID 08/03/18 [History] Nitroglycerin [Nitrostat] 0.4 mg SL Q5MIN PRN MDD [id number] CALL 911 08/03/18 [History] predniSONE [PredniSONE] 40 mg PO DAILY 4 Days #8 tablet 08/03/18 [Rx] Allergies/Adverse Reactions: Allergy/AdvReac Type Severity Reaction Status Date / Time codeine Allergy Severe Hives Verified 08/03/18 12:19 [From Tylenol-Codeine #3] Date of admission: 08/01/18 23:12 Primary care physician: Lizzie Irby Consults: 08/02/18 00:46 Consult to Cardiology [CONS] Routine Comment: Consulting Provider: Cardiology Cinda Reason for Consult: elevated troponin with history of CAD/CABG/AICD, daily chronic chest pain Call Completed: No 08/02/18 16:58 Consult to Nurse Navigator [CONS] Routine Comment: copd Discharging clinician: Itz Beckford - Constitutional Vitals: Temp Pulse Resp BP Pulse Ox 97.9 F 76 18 127/76 99 08/03/18 07:25 08/03/18 11:16 08/03/18 11:16 08/03/18 11:16 08/03/18 11:16 Exam: General: In no acute distress. Respiratory exam: CTAB. no accessory muscle use, rales, rhonchi, wheezes Cardiovascular exam: RRR, +S1, +S2. no murmur, gallop, rubs. GI/Abdominal exam: Obese, Non-tender, Non-distended, normal bowel sounds, soft, no peritoneal signs. Extremities exam: no pedal edema, pulses palpable in b/l lower extremities. no calf tenderness Neurological exam: CN II-XII intact, AO X3, no focal deficits. Skin exam: No skin rash - Patient Status Disposition: Home, Self-Care Condition: Fair - Discharge Instructions Instructions: Prednisone (By mouth), Levofloxacin (By mouth), Diabetes Mellitus Type 2 in Adults (DC), Chronic Obstructive Pulmonary Disease (DC) Follow Up With: Lizzie Irby MD [Primary Care Provider] - 08/09/18 11:00 am
== END 2018-08-03 17:04 | disposition home or self-care (01) | DRG 133 ==
LOC: 2NNU → SUATTDRO 23:12
PROVIDERS: ADMIT Internal Medicine Nephrology; ATTEND Internal Medicine